=== PATIENT | female | born 1965 | race Caucasian/White ===

== ENCOUNTER 2021-07-21 11:31 | Outpatient (REF) | payer MEDICAID, SELFPAY ==
[2021-07-21 12:01] LABS: MANUAL DIFF FLAG NO
[2021-07-21 12:15] LABS: Basophils Percent Auto 0.4 % (0-2); Eosinophils Absolute Auto 0.1 X10*3/uL (0.0-0.4); Eosinophils Percent Auto 2.8 % (0-4); Hemoglobin 13.5 g/dl (12.0-16.0); Imm Gran Abs Auto 0.02 X10*3/uL (0.00-0.03); Imm Gran Pct Auto 0.4 % (0.0-0.4); Lymphocytes Absolute Auto 2.2 X10*3/uL (1.2-4.9); Lymphocytes Percent Auto 47.6 % (20-40); Mean Corpuscular HGB Conc 33.8 g/dl (31.0-35.0); Mean Corpuscular Hemoglobin 30.3 pg (27.0-33.0); Mean Corpuscular Volume 89.9 fL (80.0-98.0); Mean Platelet Volume 10.6 fL (9.4-12.3); Monocytes Absolute Auto 0.4 X10*3/uL (0.1-1.2); Monocytes Percent Auto 9.3 % (2-11); Neutrophils Absolute Auto 1.8 x10*3/uL (2.0-8.3); Neutrophils Percent Auto 39.5 % (45-73); Platelet Count 222 X10*3/uL (160-400); Red Blood Count 4.45 X10*6/uL (4.20-5.50); Red Cell Distribution Width 12.9 % (11.0-16.0); White Blood Count 4.6 X10*3/uL (4.8-10.8)
[2021-07-21 12:39] LABS: Alanine Aminotransferase 36 U/L (0-31); Albumin Level 4.4 g/dL (3.5-5.0); Alkaline Phosphatase 68 U/L (39-117); Aspartate Amino Transferase 28 U/L (5-31); Bilirubin Direct 0.2 mg/dL (0.0-0.5); Bilirubin Total 0.6 mg/dL (0.0-1.0); Total Protein 6.8 g/dL (6.5-8.0)
[2021-07-22 04:43] LABS: HBS Num1 0.41 mIU/mL (0-7.99); HBc Num1 0.23 S/CO (0.00-0.79); Hepatitis B Core Antibody Nonreactive (Nonreactive); Hepatitis B Surface Antigen Negative (Negative); ~Hepatitis B Surface Antibody NONREACTIVE (Nonreactive)
[2021-07-22 12:51] LABS: Anti Nuclear Antibody Screen NEGATIVE (NEGATIVE)
[2021-07-22 13:51] LABS: Immunoglobulin A 93 mg/dL (47-310)
[2021-07-22 16:16] LABS: Gliadin Deamidated IgG Ab <1.0 U/mL; Transglutaminase Ab IgG <1.0 U/mL; Transglutaminase IgA <1.0 U/mL
[2021-07-23 13:42] LABS: Mitochondrial Antibodies NEGATIVE (NEGATIVE)
== END 2021-07-21 11:32 | disposition home or self-care (01) ==
LOC: HO.LAB 11:31
PROVIDERS: PCP Nurse Practitioner Family; Visit Provider Internal Medicine Gastroenterology
DX: R79.89 Other specified abnormal findings of blood chemistry (principal)
CPT/HCPCS: 36415; 80076; 82784; 85025; 86015; 86038; 86039; 86231; 86255; 86256; 86258; 86364; 86704; 86706; 87340

== ENCOUNTER 2024-06-02 11:52 | Outpatient (REF) | payer MEDICAID, SELFPAY ==
[2024-06-02 13:06] LABS: MANUAL DIFF FLAG NO
[2024-06-02 13:13] LABS: Basophils Percent Auto 0.4 % (0-2); Eosinophils Absolute Auto 0.1 X10*3/uL (0.0-0.4); Eosinophils Percent Auto 1.6 % (0-4); Hematocrit 39.4 % (37.0-47.0); Hemoglobin 13.7 g/dl (12.0-16.0); Imm Gran Abs Auto 0.01 X10*3/uL (0.00-0.03); Imm Gran Pct Auto 0.2 % (0.0-0.4); Lymphocytes Absolute Auto 2.3 X10*3/uL (1.2-4.9); Lymphocytes Percent Auto 47.2 % (20-40); Mean Corpuscular HGB Conc 34.8 g/dl (31.0-35.0); Mean Corpuscular Hemoglobin 30.2 pg (27.0-33.0); Mean Corpuscular Volume 86.8 fL (80.0-98.0); Mean Platelet Volume 10.1 fL (9.4-12.3); Monocytes Absolute Auto 0.5 X10*3/uL (0.1-1.2); Monocytes Percent Auto 9.4 % (2-11); Neutrophils Percent Auto 41.2 % (45-73); Platelet Count 241 X10*3/uL (160-400); Red Blood Count 4.54 X10*6/uL (4.20-5.50); White Blood Count 4.9 X10*3/uL (4.8-10.8)
[2024-06-02 13:32] LABS: Alanine Aminotransferase 31 U/L (0-31); Albumin Level 4.5 g/dL (3.5-5.0); Alkaline Phosphatase 71 U/L (39-117); Aspartate Amino Transferase 32 U/L (5-31); Bilirubin Direct 0.3 mg/dL (0.0-0.5); Bilirubin Total 0.7 mg/dL (0.0-1.0); Blood Urea Nitrogen 6 mg/dL (9-16); Estimated Glomerular Filt Rate > 60; Lipase 30 U/L (8-78); Total Protein 6.9 g/dL (6.5-8.0)
[2024-06-05 08:04] LABS: Immunoglobulin A 95 mg/dL (47-310)
[2024-06-05 20:18] LABS: Gliadin Deamidated IgA Ab 4.9 U/mL; Gliadin Deamidated IgG Ab <1.0 U/mL; Transglutaminase Ab IgG <1.0 U/mL; Transglutaminase IgA <1.0 U/mL
[2024-06-09 23:53] LABS: Endomysial IgA Antibody Negative (Negative)
== END 2024-06-02 11:53 | disposition home or self-care (01) ==
LOC: HO.10HDL 11:52
PROVIDERS: Visit Provider Internal Medicine Gastroenterology
DX: R10.13 Epigastric pain (principal); R19.5 Other fecal abnormalities
CPT/HCPCS: 36415; 80076; 82565; 82784; 83690; 84520; 85025; 86231; 86258; 86364

== ENCOUNTER 2024-06-09 11:42 | Day surgery (SDC) | payer OTHER, SELFPAY ==
[2024-06-09 11:45] VITALS: BMI 22.2
[2024-06-09 11:59] VITALS: BP 131/75; PULSE 70; RESP 20; TEMP 36.9; O2SAT 98; BMI 22.0
--- NOTE | 2024-06-09 12:09 | MHC.SHP ---
Pre-Procedural Eval Section A - 24 Hr Update-Section A only Date of Service: 06/09/24 The patient is an INPATIENT: No Changes since office visit: No Cold of Flu in the past 2 weeks, No New Medical Problems, No Changes in Medication and No Patient answered all questions The patient has been examined within 24 hours of the surgical procedure. The History & Physical has been completed within 30 days and I have reviewed it.: Yes Section B - Complete if H&P > 30 days Chief Complaint: Epigastric pain,Other fecal abnormalities Allergies: Allergies Allergy/AdvReac Type Severity Reaction Status Date / Time aspirin Allergy Severe Gastrointestinal Unverified 06/09/24 12:07 Hemorrhage fentanyl Allergy Severe Hives Verified 06/09/24 12:07 gluten Allergy Severe Gastrointestinal Unverified 06/09/24 12:07 Upset Latex, Natural Rubber Allergy Severe Hives Verified 06/09/24 12:07 NSAIDS (Non-Steroidal Allergy Severe Gastrointestinal Unverified 06/09/24 12:07 Anti-Inflamma Hemorrhage Penicillins Allergy Severe Hives Unverified 06/09/24 12:07 wheat Allergy Severe Gastrointestinal Unverified 06/09/24 12:07 Upset Plan I have reviewed the history and physical and performed a pertinent physical examination on my patient. No changes have occurred unless specified. Time Spent With Patient Time: Total time managing care of this patient today ____ minutes.
--- NOTE | 2024-06-09 12:10 | HO.ANESPROP2 ---
HPI - Anesthesia Eval Consult details Narrative: 59 yo female patient for EGD, Colonoscopy PMFSH Past Medical History Medical History History of benign breast biopsy Injury of cervical spine Back pain Migraine Iron deficiency anemia Celiac disease Elevated liver function tests Family History Family History Father Heart disease Father Mother Family history of problems with anesthesia: No Surgical History Surgical History (Updated 06/09/24 @ 12:24 by Marta Restrepo MD) H/O left breast biopsy History of hysterectomy for benign disease History of knee surgery History of section History of Problems with Anesthesia: Yes (Hives. Happened twice even with benadryl necessitating hospitalization ) Social History Social History Patient Tobacco Use Status: Never used Tobacco Have you been hit, kicked, punched, or otherwise hurt by someone within the past year? 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 Meds Allergies Allergy/AdvReac Type Severity Reaction Status Date / Time aspirin Allergy Severe Gastrointestinal Verified 06/09/24 12:14 Hemorrhage fentanyl Allergy Severe Hives Verified 06/09/24 12:14 gluten Allergy Severe Gastrointestinal Verified 06/09/24 12:14 Upset Latex, Natural Rubber Allergy Severe Hives Verified 06/09/24 12:14 NSAIDS (Non-Steroidal Allergy Severe Gastrointestinal Verified 06/09/24 12:14 Anti-Inflamma Hemorrhage Penicillins Allergy Severe Hives Verified 06/09/24 12:14 wheat Allergy Severe Gastrointestinal Verified 06/09/24 12:14 Upset Home Medications ?Medication ?Instructions ?Recorded ?Confirmed ?Last Taken ?Type No Known Home Meds 06/09/24 06/09/24 Unknown History Exam Height,Weight and Vital Signs: Height 5 ft Weight 51.029 kg Last Vital Signs Temp 98.5 F 06/09/24 11:59 Pulse 70 06/09/24 11:59 Resp 20 06/09/24 11:59 BP 131/75 06/09/24 11:59 Pulse Ox 98 06/09/24 11:59 O2 Del Method Room Air 06/09/24 11:59 Airway Mallampati Class: II TM Dist: >3cm Neck ROM: Full Denture: Upper Loose/Missing/Broken Teeth: Yes (Top full denture. Missing some teeth bottom. Denies broken or loose teeth) Heart: RRR Lungs: CTAB Assessment and Plan Assessment Anesthesia Assessment: Anesthesia Plan Discussed and Chart Reviewed Final Anesthetic Review Family History of Problems with Anesthesia: No History of Problems with Anesthesia: Yes (Hives. Happened twice even with benadryl necessitating hospitalization ) NPO: Yes ASA Class: II Final Preanesthetic Review: No Changes in Pt Med Stat, Meds/Allgs Chart Reviewed, Consent Obtained/Reviewed and Anes Risks/Benef Reviewed Patient Risk: Low Procedure Risk: Low Assessment/Block/Sedation in SS: Assess/Block/Sedation-SS Anesthetic Plan Anesthetic Plan: TIVA Disposition: Standard PACU
[2024-06-09 13:12] VITALS: BP 109/78; PULSE 69; RESP 16; TEMP 36.3; O2SAT 98
[2024-06-09 13:27] VITALS: BP 110/71; PULSE 65; RESP 16; O2SAT 98
[2024-06-09 13:40] VITALS: BP 110/75; PULSE 65; RESP 14; TEMP 36.3; O2SAT 98
--- NOTE | 2024-06-09 23:06 | OP_ITS ---
DATE OF SERVICE: 06/09/2024 SURGEON: Ari Germain MD INDICATIONS: 1. Epigastric pain. 2. Abnormal findings in stool. PREOPERATIVE DIAGNOSIS: POSTOPERATIVE DIAGNOSIS: PROCEDURE PERFORMED: Upper endoscopy with biopsy, colonoscopy to the terminal ileum with biopsy and snare polypectomy. ESTIMATED BLOOD LOSS: COMPLICATIONS: ANESTHESIA: Monitored anesthesia care. ASSISTANTS: SPECIMENS: DESCRIPTION OF PROCEDURE: A history and physical performed. The risks and benefits of the procedure were explained to the patient. Informed consent was obtained. The patient was placed in the left lateral decubitus position. The Olympus video gastroscope was introduced into the esophagus, stomach, and duodenum. Examination was performed. The scope was removed. She was repositioned for colonoscopy. A digital rectal exam was performed and was found to be normal. The Olympus pediatric video colonoscope was introduced into the rectum and advanced to the cecum. The cecum was identified by transillumination, palpation, and identification of ileocecal valve. Examination was performed. The scope was removed. She tolerated both procedures well and was returned to recovery in stable condition. FINDINGS: Upper endoscopy, esophagus: The esophagus was normal. The EG junction was slightly irregular. There was no esophagitis. Biopsies were obtained from the EG junction. Stomach: The stomach was normal. Antral biopsies were obtained. Duodenum: The bulb and second portion appeared relatively normal. Biopsies were obtained from the duodenum, because of the patient's history of celiac disease. Colonoscopy: The terminal ileum was normal, visualized colonic mucosa was normal. The quality of the prep was good. Abdominal wall pressure was used to assist in advancement of the scope due to looping in the sigmoid. In the rectum, were 2 polyps; 1 measuring 8 mm, which were removed with a hot snare and recovered via suction; the second measured approximately 4 mm and was removed with biopsy forceps. Retroflexed examination showed moderate-sized internal hemorrhoids. IMPRESSION: 1. Normal upper endoscopy. 2. Colon polyps. RECOMMENDATION: Follow up the biopsy results. MD AURY Beach/MARIA EUGENIAL / [phone]
== END 2024-06-09 14:11 | disposition home or self-care (01) ==
PROVIDERS: PCP Nurse Practitioner Family; Visit Provider Internal Medicine Gastroenterology
PROC: (CPT 43239; principal; 2024-06-09 12:50)
DX: R10.13 Epigastric pain (principal); D12.8 Benign neoplasm of rectum; K56.2 Volvulus; R19.5 Other fecal abnormalities; K90.0 Celiac disease
CPT/HCPCS: 43239; 45385; 45380; 88305; 88313; 88342; J2003; J2704

== ENCOUNTER 2025-07-06 09:30 | Outpatient (REF) | payer OTHER, SELFPAY ==
--- OUTSIDE RECORDS SUMMARY | 2024-06-09 08:00 | XMS_ITS ---
Author Organization [facility] Address [address] [place] [phone] Care Team Providers Care Desktop Administrator Name Role Phone DAGOBERTO CHERY CNP Primary Care Provider U Ari Thomas Jr REASON FOR VISIT abnormal findings in stool,epigastric pain Encounters Encounter Location Date Provider Diagnosis [facility] [address] [place] [phone] 06/09/2024 Ari Germain Jr Rectal polyp K62.1 ; Heme + stool R19.5 ; Other hemorrhoids K64.8 ; Other specified disease of esophagus K22.89 and Abdominal pain, epigastric R10.13 Assessments Encounter Date Diagnosis (ICD Code) Assessment Notes Treatment Notes Treatment Clinical Notes Section Notes 06/09/2024 Rectal polyp (ICD-10 - K62.1) 06/09/2024 Heme + stool (ICD-10 - R19.5) 06/09/2024 Other hemorrhoids (ICD-10 - K64.8) 06/09/2024 Other specified disease of esophagus (ICD-10 - K22.89) 06/09/2024 Abdominal pain, epigastric (ICD-10 - R10.13) Plan Of Treatment No Information Progress Notes * BELLE SARAHDOB:1964 (60 yo F)Acc No.[id number]:06/09/2024 EGD and COL/MAC Patient: Gregor BELLE WHITMAN Provider: Sergio Germain MD :1965 A ge:59 Y S ex:Female Date:06/09/2024 Address:[address] [place] [address] [place], [id number] Pcp:DAGOBERTO CHERY, MAINTENANCE SHOP MANAGER Subjective: * Chief Complaints: * A bnormal findings in stool,epigastric pain Assessment: * Assessment: 1. R ectal polyp - K62.1 (Primary) 2 . H jerzy + stool - R19.5 ?3. O ther hemorrhoids - K64.8 4 . O ther specified disease of esophagus - K22.89 5 . A bdominal pain, epigastric - R10.13 Plan: * Procedure Codes: 4 5385 LESION REMOVAL COLONOSCOPY, Modifiers: 33 71835 COLONOSCOPY AND BIOPSY, Modifiers: 59 , [id number] UPPER GI ENDOSCOPY, BIOPSY Billing Information: * Procedure Codes: 74412 LESION REMOVAL COLONOSCOPY. Modifiers: 33 12845 COLONOSCOPY AND BIOPSY. Modifiers: 59, 03 52139 UPPER GI ENDOSCOPY, BIOPSY. * The named appointment provid er may or may not be the originator of this progress note, and it is not deemed complete until electronically signed by the appointment provider. Sign off status: Pending * Provider: Sergio Germain MD Date: 08/09/2023 Generated for Maggy naranjo/Shayla/Nancyransmitting on: 09/06/2024 10:15 AM EST
--- NOTE | ~2025-07-06 | US_ITS ---
CLINICAL HISTORY: abd pain. elevated LFTs US abdomen complete with color Doppler Comparison: None Findings: The visualized pancreas, aorta, and inferior vena cava are unremarkable. Liver normal size and echotexture. Right lobe 11.1 cm length. No focal hepatic masses. Common duct 5.5 mm diameter. Physiologic distention of the gallbladder. No gallstones or sludge. No gallbladder wall thickening. No pericholecystic fluid. No sonographic Perry sign. Main portal vein antegrade. Right kidney normal size, 10.1 cm in length. Normal cortical width and echotexture. No solid or cystic renal masses. No nephrolithiasis. No hydronephrosis. Left kidney normal, 10.1 cm in length. Normal cortical width and echotexture. No solid or cystic renal masses. No nephrolithiasis. No hydronephrosis. Spleen measures 8.1 cm. No splenic masses. No ascites. No lymphadenopathy. Impression: 1. Normal abdominal ultrasound. This document has been electronically signed by: Ran Bernal MD on 07/06/2025 11:25:03
--- OUTSIDE RECORDS SUMMARY | 2025-07-06 10:15 | XMS_ITS | Encounter Summary ---
Author Organization [facility] Address [address] [place] [address] Care Team Providers Care National Park Ranger Name Role Phone Luciana Lombardo MD Primary Care Provider [phone]- [phone] Encounter Details Date Type Department Care Team (Late Contact Info) Description 05/27/2025 Results Follow-Up Gastroenterology - [address] [phone] Saima Bates PA [address] [place] [address] [address] Social History Tobacco Use Types Packs/Day Years Used Date Smoking Tobacco: Never Assessed Comments Unknown Sex and Gender Information Value Date Recorded Sex Assigned at Not on file Legal Sex Female 11:42 AM EDT Gender Identity Not on file Sexual Orientation Not on file documented as of this encounter Progress Notes * LUZ Stearns - 05/27/2025 4:58 PM EST I will send msg. documented in this encounter Plan of Treatment Upcoming Encounters Date Type Department Care Team (Late Contact Info) Description 07/23/2025 9:10 AM EST Office Visit Gastroenterology - [address] [facility] [address] [place] [phone] Saima Bates PA [address] [place] [address] [address] documented as of this encounter Visit Diagnoses Not on filedocumented in this encounter Care Teams National Park Ranger Relationship Specialty Start Date End Date Luciana Lombardo MD [address] [place] [phone] PCP - General Internal Medicine 03/09/25 documented as of this encounter
--- OUTSIDE RECORDS SUMMARY | 2025-07-06 10:15 | XMS_ITS | Clinical Summary ---
Author Organization [facility] Address [address] [place] [address] Phone Care Team Providers Care Scutcher Tender Name Role Phone Luciana Lombardo MD Primary Care Provider [phone]- [phone] Allergies Active Allergy Reactions Criticality Noted Date Comments Fentanyl Hives 03/14/2025 Gluten 03/14/2025 Ibuprofen GI bleeding,Unknown High 03/14/2025 Latex High 03/14/2025 Milk Containing Products (Dairy) Nsaids (Non-Steroidal Anti-Inflammatory Drug) GI bleeding,Unknown 03/14/2025 Peanut 03/14/2025 Penicillins Unknown 03/14/2025 Soy Unknown 03/14/2025 Medications magnesium carb,citrate,oxi de (MAGNESIUM COMPLEX ORAL) Take 500 mg by mouth 1 (one) time each day. Active CREATINE MONOHYDRATE ORAL Take 10 g by mouth 1 (one) time each day. Active cyanocobalamin (VITAMIN B-12) 1,000 mcg tablet Take 0.5 tablets (500 mcg total) by mouth 1 (one) time each day. Active cholecalciferol (Vitamin D3) 5,000 Units tablet Take 1 tablet (5,000 Units total) by mouth 1 (one) time each day. Active activated charcoal powder Acti ve lactobacillus acidoph-l.bulgar 100 million cell granules in packet Take 1 packet by mouth 1 (one) time each day. Active Lactobacillus reuteri 100 million cell powder in packet Take 1 Package by mouth 2 (two) times a day. 60 packet 3 03/14/2025 Active Encounters Date Type Department Care Team Description 05/27/2025 Results Follow-Up Gastroenterology - [address] [phone] Saima Bates PA 05/16/2025 8:04 AM EDT - 05/16/2025 11:59 PM EDT Hospital Encounter [facility] Nuclear Medicine [address] [place] [phone] Celiac disease; Rectal discharge; Constipation, unspecified constipation type Discharge Disposition: Home or Self Care from Last 3 Months Social History Tobacco Use Types Packs/Day Years Used Date Smoking Tobacco: Never Assessed Comments Unknown Sex and Gender Information Value Date Recorded Sex Assigned at Not on file Legal Sex Female 11:42 AM EDT Gender Identity Not on file Sexual Orientation Not on file Last Filed Vital Signs Vital Sign Reading Time Taken Comments Blood Pressure 96/60 03/14/2025 2:00 PM EDT Pulse - - Temperature - - Respiratory Rate - - Oxygen Saturation - - Inhaled Oxygen Concentration - - Weight 50.8 kg (112 lb) 03/14/2025 2:00 PM EDT Height 152.4 cm (5') 03/14/2025 2:00 PM EDT Body Mass Index 21.87 03/14/2025 2:00 PM EDT Plan of Treatment Upcoming Encounters Date Type Department Care Team ([facility] st Contact Info) Description 07/23/2025 9:10 AM EST Office Visit Gastroenterology - [address] [phone] Saima Bates PA [address] [address] Health Maintenance Due Date Last Done Comments Breast Cancer Screening 1965 DTaP,Tdap,and Td Vaccines (1 - Tdap) 02/12/1984 Cervical Cancer Screening: P ap Smear 1986 Pneumococcal Vaccine: 50+ Years (1 of 1 - PCV) 2015 Zoster Vaccines (1 of 2) 2015 Depression Screening 07/19/2024 HIV Screening 12/22/2024 Hepatitis C Screening 12/22/2024 Social Influencers of Health Screening 12/22/2024 COVID-19 Vaccine (1 - 2024-2 6 season) 2025 Influenza Vaccine (#1) 2025 Colorectal Cancer Screening: FIT-DNA (Cologuard) 05/02/2027 05/02/2024, 05/02/2024 RSV Immunization Adult Patients (1 - 1-dose 75+ series) 02/12/2040 HIB Vaccines Aged Out No longer eligi ble based on patient's age to complete this topic HPV Vaccines Aged Out No longer eligi ble based on patient's age to complete this topic Hepatitis A Vaccines Aged Out No long er eligible based on patient's age to complete this topic Hepatitis B Vaccines Aged Out No long er eligible based on patient's age to complete this topic IPV Vaccines Aged Out No longer eligi ble based on patient's age to complete this topic MMR Vaccines Aged Out No longer eligi ble based on patient's age to complete this topic Meningococcal ACWY Vaccine Aged Out N o longer eligible based on patient's age to complete this topic Meningococcal B Vaccine Aged Out No l onger eligible based on patient's age to complete this topic RSV Immunization Patients Under 20 months Aged Out No longer eligible b ased on patient's age to complete this topic Varicella Vaccines Aged Out No longer eligible based on patient's age to complete this topic Procedures Procedure Name Priority Date/Time Associated Diagnosis Comments NM GASTRIC EMPTYING STUDY Routine 05/16/2025 11:23 AM EDT Celiac disease Rectal discharge Constipation, unspecified constipation type from Last 3 Months Results * NM Gastric Emptying Study (05/16/2025 11:23 AM EDT) Anatomical Region Laterality Modality Body Nuclear Medicine 05/16/2025 3:35 PM EDT Impressions 05/16/2025 3:37 PM EDT Normal solid material gastric emptying. Telerad LUZ ([id number]) -------- FINAL REPORT -------- Dictated By: Dia Nina Dictated Date: 05/16/2025 15:35 ET Assigned Physician: Dia Nina Reviewed and Electronically Signed By: Dia Nina Signed Date: 05/16/2025 15:37 ET Workstation ID: [id number] Transcribed By: Self Edit Transcribed Date: 05/16/2025 15:35 ET Narrative 05/16/2025 3:37 PM EDT HISTORY: Abdominal pain and bloating. Question disordered gastric emptying. FINDINGS: Radionucleotide gastric emptying study performed following ingestion of 1.0 mCi of Tc99m sulfur colloid mixed with eggs for solid food evaluation. Solid food evaluation time to half peak clearance is 68 minutes with normal being less than 90 minutes. Patients 2 hour retention amount was calculated at 10%. Reference normal solid residual activity: less than 90% at 1 hour less than 60% at 2 hours less than 30% at 3 hours less than 10% at 4 hours Procedure Note Dia Nina MD - 05/16/2025 HISTORY: Abdominal pain and bloating. Question disordered gastricemptying. FINDINGS: Radionucleotide gastric emptying study performed followingingestion of 1.0 mCi of Tc99m sulfur colloid mixed with eggs for solidfood evaluation. Solid food evaluation time to half peak clearance is 68 minutes withnormal being less than 90 minutes. Patients 2 hour retention amount was calculated at 10%. Reference normal solid residual activity: less than 90% at 1 hour less than 60% at 2 hours less than 30% at 3 hours less than 10% at 4 hours IMPRESSION: Normal solid material gastric emptying. Mitul ESCOBAR ([id number]) -------- FINAL REPORT -------- Dictated By: Dia Nina Dictated Date: 05/16/2025 15:35 ET Assigned Physician: Dia Nina Reviewed and Electronically Signed By: Dia Nina Signed Date: 05/16/2025 15:37 ET Workstation ID: [id number] Transcribed By: Self Edit Transcribed Date: 05/16/2025 15:35 ET Saima ESCOBAR IMG NM PROCEDURES Final Resul t from Last 3 Months Insurance MEDICAID - [place] [facility] [place] MEDICAID ADVANTAGE Care Teams Scutcher Tender Relationship Specialty Start Date End Date Luciana Lombardo MD [address] [place] [phone] PCP - General Internal Medicine 03/09/25
--- OUTSIDE RECORDS SUMMARY | 2025-07-06 10:15 | XMS_ITS | Patient Health Record ---
Author Organization [facility] Address [address] [place] [address] Care Team Providers Care Fabrication Inspector Name Role Phone DAGOBERTO CHERY CNP Primary Care Provider U Ari Thomas Jr Unavailable Allergies Allergen (clinical drug ingredient) Drug/Non Drug Allergy documented on EMR Reaction Allergy Type Onset Date Status celiac wheat, gluten , grains (uncoded) Unknown Allergy Active aspirin Aspirin Unknown Drug Allergy Active Latex Latex Unknown Allergy Active Non-steroidal anti-inflammatory agent (FN) NSAIDs Unknown Drug Allergy Active Penicillin Unknown Drug Allergy Active Reason For Referral No Information Immunizations Vaccine Route Administration Date Status Comme nts Influenza Unknown 07/21/2021 Refused Influenza Unknown 05/04/2025 Refused Social History Tobacco Use: Social History Observation Description Date Details (start date - stop date) Never Smoker NA - NA Social History Drugs/Alcohol: Social Info Question Answer Notes Alcohol Screen Did you have a drink containing alcohol in the past year? No Points 0 Interpretation Negative Tobacco Use: Social Info Question Answer Notes Tobacco Use/Smoking Patient is a nonsmoker Additional Details Category Social Info Options Details Miscellaneous: Marital status: Occupation: works full-time Problems Problem Type SNOMED Code ICD Code Onset Dates Problem Status W/U Status Risk Notes Problem Epigastric pain (27941533) Epigastric pain (R10.13) Active confirmed Problem Abdominal pain (74322578) Abdominal pain (R10.9) Active confirmed Problem Celiac disease (706463755) Celiac disease (K90.0) Active confirmed Problem Elevated liver enzymes level (820149471) Elevated LFTs (R79.89) Active confirmed Problem Abnormal feces (391603257) Abnormal findings in stool (R19.5) Active confirmed Vital Signs Temperature 97.8 degrees Fahrenheit 05/04/2025 Blood pressure diastolic 01 mm Hg 05/04/2025 Height 60 in 05/04/2025 Blood pressure systolic 001 mm Hg 05/04/2025 Weight 114 lbs 05/04/2025 BMI 22.26 kg/m2 05/04/2025 Encounters Encounter Location Date Provider Diagnosis [facility] [address] [place] [address] 05/04/2025 Ari Marcellus Randolph Abdominal pain R10.9 ; Elevated LFTs R79.89 and Celiac disease K90.0 Assessments Encounter Date Diagnosis (ICD Code) Assessment Notes Treatment Notes Treatment Clinical Notes Section Notes 05/04/2025 Abdominal pain (ICD-10 - R10.9) We discussed her symptoms today. We discussed celiac disease. We discussed the causes of elevated liver function tests. We will schedule an ultrasound here since she has not been contacted by the radiology department at [place]. For her abdominal pain she will have an upper GI and small bowel follow-through to rule out small bowel disease. We offered a trial of Bentyl for her abdominal symptoms but she does not want to do this. We will await the results of imaging and she will have follow-up liver function tests later in the fall. Today's visit was 30 minutes. 05/04/2025 Elevated LFTs (ICD-10 - R79.89) We discussed her symptoms today. We discussed celiac disease. We discussed the causes of elevated liver function tests. We will schedule an ultrasound here since she has not been contacted by the radiology department at [place]. For her abdominal pain she will have an upper GI and small bowel follow-through to rule out small bowel disease. We offered a trial of Bentyl for her abdominal symptoms but she does not want to do this. We will await the results of imaging and she will have follow-up liver function tests later in the fall. Today's visit was 30 minutes. 05/04/2025 Celiac disease (ICD-10 - K90.0) We discussed her symptoms today. We discussed celiac disease. We discussed the causes of elevated liver function tests. We will schedule an ultrasound here since she has not been contacted by the radiology department at [place]. For her abdominal pain she will have an upper GI and small bowel follow-through to rule out small bowel disease. We offered a trial of Bentyl for her abdominal symptoms but she does not want to do this. We will await the results of imaging and she will have follow-up liver function tests later in the fall. Today's visit was 30 minutes. Plan Of Treatment Pending Test Test Name Order Date LIVER PROFILE 06/02/2024 LIVER PROFILE 07/28/2021 LIPASE 06/02/2024 CBC w/o DIFF 06/02/2024 CBC w/o DIFF 07/28/2021 CELIAC DISEASE ANTIBODY PANEL 06/02/2024 CT ABD & PELVIS WITH CONTRAST 06/02/2024 XR GI HIGH DENSITY SMALL BOWEL US ABD 05/04/2025 Future Test Test Name Order Date UPPER GI ENDOSCOPY 06/02/2024 COLONOSCOPY 06/02/2024 Insurance Providers Payer Name Payer Address Payer Phone Subscriber Number Group Number Insured Name Patient Relationship to Insured Coverage Start Date Coverage End Date [facility] [address] [place] [address] [id number] BELLE SARAH Self - patient is the insured MEDICAID OF [facility] [address] [place] [address] [id number] BELLE SARAH Self - patient is the insured Medical (General) History Medical History History ICD Code Elevated liver function tests Celiac disease Iron deficiency anemia, resolved Migraines Back pain 11/2023 fall broke arm /cervical spine in jury osteoporosis EGD 06/11 mildly increased i ntraepithelial lymphocytes in the duodenum, no H. pylori Colonoscopy 06/11, tubular adenomas x 2, 5 to 7-year follow-up Surgical History Surgery Date(Month/Year) section 2 knee surgeries Benign breast lump Hysterectomy for benign disease carpal tunnel release
--- OUTSIDE RECORDS SUMMARY | 2025-07-06 10:15 | XMS_ITS | Data Portability ---
Author Organization [facility]ON[facility] - [facility], [facility] Address [address] [place] [address] Care Team Providers Care Training Engineer Name Role Phone DAGOBERTO CHERY Primary Care Provider Assessment Encounter Date Assessment Date Assessment LastModified by Organization Details LastModified Time 10/31/2024 10/31/2024 A ssessment: 1. Cervical stenosis with myeloradiculopathy 2. Severe bilateral carpal tunnel syndrome 3. Osteoporosis Plan: 1. Cervical Spine: - Recommend C5-6 and C6-7 anterior cervical discectomy and fusion vs disc replacement - Will defer cervical surgery until after carpal tunnel treatment - CT scan to be ordered for surgical planning 2. Carpal Tunnel Syndrome: - Order bilateral wrist braces for night use - Referral to hand surgery for bilateral carpal tunnel release evaluation - Recommend addressing more symptomatic left side first - I believe there is a degree of double crush however cervical pathology is more significant on the right and her hand symptoms are more significant on the left. 3. Osteoporosis: - Order Vitamin D level - Will review DEXA scan results - Recommend initiating alendronate therapy After reviewing the patient's history, physical exam and studies I have decided the patients chronic illness with progression warrants elective major surgery. The patient has completed greater than 6 weeks of physician directed nonoperative management of this condition to include medications and physical therapy without improvement. I have further discussed the natural progression of this disease as well as the operative and non-operative modalities that are appropriate for treating this disease. The known risks of surgery include infection, bleeding, damage to nerves and/or arteries, continued pain, loss of motion, spinal fluid leak, and the possible need for further surgeries. Risks of anesthesia such as nausea, vomiting, pneumonia, stroke, heart attack and . ICD-10: M47.12 - Cervical spondylosis with myelopathy ICD-10: G56.02 - Carpal tunnel syndrome, bilateral ICD-10: M81.0 - Age-related osteoporosis without current pathological fracture [email or web address] Not available 10/31/2024 12:41:10 Plan of Treatment Reminders Order Date Submit Date Provider Last Modified By Organization Details Last Modified Time Details Appointments None recorded. 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 Surgeries carpal tunnel release (SURG) 2024 025 [email or web address] 5 [facility], [address], [place], [address], 5 10:29:16 Imaging XR, cervical spine, 4 or 5 view - 325 4v cspine 2024 025 [email or web address] 8 [facility], [address], [address], [place], [address], 5 10:54:11 Medication Orders None recorded. Patient TargetsNo targets recorded. Patient InstructionsNo instructions recorded. Reason for Referral left hand and wrist s/p dist al radius fx Referring Physician: Lencho Wells, Orthopedic Surgery, Encounter Date: 08/08/2024 Results Created Date Observation Date Name Description Value Unit Range Abnormal Flag Note LastModifiedBy Organization Detail LastModifiedTime 04/19/20 24 04/10/2024 MRI, cervi tenzin spine , w/o contr ast [facility] Access ion Number : [id number] Patien t Name: Ethan Tai Record Number : [id number] Date of : 1964 Date of Exam: 2023 Referr ing Physic berna: [facility] ([facility]) [address] [facility] , [address] [place] [address] Exam: MR Cervic al Spine (C-) CPT 55091 Room Descri ption: [facility] Pion 3T HISTOR Y: Cervic algia. Bilate ral arm pain and parest hesias . TECHNI QUE: Multip lanar multis equenc e MRI of the cervic al spine withou t contra st. COMPAR KAYLA: No prior studie s are availa ble for compar kayla at [facility] . FINDIN GS: There is a slight rightw keagan curvat ure of the cervic al spine on the lockhart l locali zer images . Subtle revers al of the cervic al lordos is is also noted. No sublux ation. The cervic al verteb ral bodies are normal in height . Modera te loss of height of C5-C6 and C6-C7. Margin al osteop hytes are noted at C5-C6. The visual ized decorating inspector ior crania l fossa struct ures and cervic omedul ja juncti on are unrema rkable . The cervic al cord is normal in signal . The parasp inal soft tissue s and visual ized verteb ral artery flow voids are unrema rkable . C2-C3: Small centra l disc protru rosi. No signif icant centra l canal or forami nal narrow ing. C3-C4: No centra l canal or forami nal stenos is. C4-C5: No centra l canal or forami nal stenos is. C5-C6: Concen tric disc-o steoph yte comple x. Mild centra l canal narrow ing. Severe right and mild left forami nal narrow ing. C6-C7: Broad- based decorating inspector ior disc bulge asymme tric to the right. Modera te right centra l canal narrow ing withou t cord imping ement. Subtle deform ity of the cord is noted. Mild right and no left forami nal narrow ing. C7-T1: No centra l canal or forami nal stenos is. IMPRES ROSI: Degene rative change s of the cervic al spine with disc hernia tions as descri bed above. No defini te cord compre ssion is noted, but deform ity of the right ventra l margin of the cord is noted at C6-C7. Forami nal stenos is is most pronou nced on the right at C5-C6. Electr onical ly Signed By: Nic Dia MD [facility] [address], [place], [address], 05/08/2024 08:48:35 05/05/2005/05/2024 XR, wrist , 3 or more view [email or web address] ?Encry pted=s hAaTro YD8dLq bEUv6g %2BXZw aYqtaq 0bqfl% 2Fg9IQ a4ajBk vP9nXo QUaueC m3YtLR FvZl JJ8mAn HZtai3 3h2570 AC0Kqa 3WHVaC mKiQtr MwF INTERFACE [facility] [address], [place], [address], 05/05/2024 10:18:43 05/05/20 24 05/05/2024 XR, wrist , 3 or more view [email or web address] ?Encry pted=s hAaTro YD8dLq bEUv6g %2BXZw aYqtaq 0bqfl% 2Fg9IQ a4ajBk vP9nXo QUaueC m3YtLR FvZlg JJ8mAn HZtai3 6z7138 AC0Kqa 3WHVaC mKiQtr MwF INTERFACE [facility] [address], [place], [address], 05/05/2024 10:18:45 08/08/19 25 08/08/2024 XR, cervi tenzin spine , 4 or 5 view http:/ [email or web address] ?Encry pted=s hAaTro YD8dLq bEUv6g %2BXZw aYqtaq 0bqfl% 2Fg9IQ a4ajBk vP9nXo QUaueC m3YtLR FvZlgJ JJ8mAn HZtai3 7y2544 AC0Kqb 3uMU6S nKiQtr MwF INTERFACE [facility] [address], [place], [address], 08/08/2024 09:16:28 08/08/19 25 08/08/2024 XR, cervi tenzin spine , 4 or 5 view http:/ [email or web address] ?Encry pted=s hAaTro YD8dLq bEUv6g %2BXZw aYqtaq 0bqfl% 2Fg9IQ a4ajBk vP9nXo QUaueC m3YtLR FvZlgJ JJ8mAn HZtai3 6l7718 AC0Kqb 3uMU6S nKiQtr MwF INTERFACE [facility] [address] [facility] [address] [facility] [address], [place], [address], 08/08/2024 09:16:30 09/12/19 25 08/15/2024 nerve condu ction study /EMG, upper extre mity (PROC ) No observ ation record ed. [facility] [address] [place] [address], [address], 10/02/2024 14:32:49 Result Notes Documentation Provider Name and Address Organization Details Recorded Time Xr, Cervical Spine, 4 Or 5 View : [email or web address] Encrypted=lvJcLifUA9tGjzC Uv6g%2DVWjnJutio1zsrw%2Fg 1ENx7auNkuD0fZxDKgelEk9Or PLEkRltVVV3aDlAXiwi29s996 4IJ4Fia6fTT9UfKpRktZmX Not Available Critical access hospital 08/08/2024 09:16: 29 Xr, Cervical Spine, 4 Or 5 View : [email or web address] Encrypted=dtLnAofTM1eHrkW Uv6g%6NDKjqIbpfo4aiqr%2Fg 1MEp6eaYtvP0rSzTMdzvEc6Ji YVFrExoAOS0kGyHJgyk72h630 3VK0Lha6aFT4NcNrXdqFiW Not Available Critical access hospital 08/08/2024 09:16: 31 Problems Name Problem SNOMED Code Status Onset Date Resolution Date Notes Provider Name and Address Organization Details Recorded Time Closed fracture of left wrist 7616415811923 9101 Active 2023 Mellissa Garcia CNP [address], [place], [address], [facility] 4 13:16:30 Closed fracture of distal end of left radius 0063156268299 9107 Active 2023 Mellissa Garcia CNP [address], [place], [address], [facility] 4 11:43:38 Pain of left wrist 7099182531433 02 Active 2023 Mellissa Garcia CNP [address], [place], [address], [facility] 4 12:18:40 Cervical radiculopat hy 13619982 Active 2023 JOHNSON zavaleta [facility] 4 08:05:52 Stiffness of joint of left hand 1865665552319 07 Active 2024 Lencho Wells MD [address], [place], [address], [facility] 5 11:13:56 Closed Colles' fracture 560232347 Active 2024 Lencho Wells MD [address], [place], [address], [facility] 5 11:13:58 Spinal stenosis in cervical region 77341673 Active 2024 Lencho Wells MD [address], [facility] [place], [address], [facility] 5 11:14:01 Problem Notes None recorded. Medical Equipment None Reported. Allergies Allergen ID Allergen Name Allergen Category Reaction Reaction Severity Criticality Documentation Date Start Date Code Code System Note Provider Name and Address Organization Details Recorded Time 689264 Motrin medicatio n Not available Not available Not available 11/24/2023 08872 8 RxNorm KOLBY FUNEZ [facility] 4 09:39:40 092720 Non-stero idal anti-infl ammatory agent (substanc e) medicatio n Not available Not available Not available 11/24/2023 45257 5008 SNOMED KOLBY FUNEZ [facility] 4 09:39:50 847243 aspirin medicatio n Not available Not available Not available 11/24/2023 1191 RxNorm KOLBY FUNEZ [facility] 4 09:40:09 135381 fentanyl medicatio n Not available Not available Not available 11/24/2023 4337 RxNorm KOLBY FUNEZ [facility] 4 09:40:14 501215 soy environme nt,food,m edication Not available Not available Not available 11/24/2023 KOLBY FUNEZ [facility] 4 09:40:23 886556 peanut allergeni c extract food,medi cation Not available Not available Not available 11/24/2023 20320 8 RxNorm KOLBY FUNEZ [facility] 4 09:40:27 214855 Product containin g penicilli n (product) medicatio n Not available Not available Not available 11/24/2023 35619 8001 SNOMED KOLBY FUNEZ [facility] 4 09:40:41 Medications Name Sig Start Date Stop Date Status Note LastModified by Organization Details LastModified Time oxycodone 5 mg tablet TAKE 1 TABLET BY MOUTH EVERY 4 HOURS NEEDED FOR 1 DAY active Not Available Not Available No t Available Vitals Date Recorded Body height Provider Name an d Address Organization Details Last Updated DateTime 08/08/2024 152.4 cm Meliza lucia [facility] 08/08/2024 09:02:51 Date Recorded Body height Body mass index (BMI) Body weight Provider Name and Address Organization Details Last Updated DateTime 10/31/2024 152.4 cm 22.8 kg/m2 58183.31 g Meliza [facility] 10/31/2024 09:14:34 Date Recorded Body height Body mass index (BMI) Body weight Provider Name and Address Organization Details Last Updated DateTime 11/20/2024 152.4 cm 22.8 kg/m2 16716.31 g MARGE MEHTA [facility] 11/20/2024 09:16:08 Date Recorded Body height Body mass index (BMI) Body weight Provider Name and Address Organization Details Last Updated DateTime 05/11/2024 152.4 cm 22.8 kg/m2 79320.31 g JOHNSON SMITH [facility] 05/11/2024 10:58:15 Social History None recorded. Functional Status None recorded. Mental Status None recorded. Family History Nothing Reported. Medical History Condition Response Allergies/Hayfever N Coronary Artery Disease N Anxiety/Depression N Breathing or lung disorders N Emphysema N Nerve Disorders N Thyroid Problems N COPD N Pacemaker N Anemia Y Kidney/Bladder Problems N Vascular Disease N Heart Trouble N Heart Attack (MT) N Gastrointestinal Disease Y Cholesterol N Diabetes N Autoimmune disease N Bleeding Disorder N Orthotics N Arthritis N Seizures/Epilepsy N Blood Clot N AIDS/HIV N Congestive Heart Failure (CHF) Y Acid Reflux (GERD) N Cancer N Stroke N Asthma N Peripheral Vascular Disease N Sleep Apnea N Hepatitis N Heart Disease N Rheumatoid Arthritis N Arrhythmia N Pulmonary Embolism N Headaches N Fibromyalgia N Hypertension N Osteoporosis N Gynecological HistoryNo gynecological history recorded. Obstetrics History GPAL:G 0 P 0 0 0 0 Past Encounters Encounter ID Performer Location Encounter Start Date Encounter Closed Date Diagnosis/Indication Diagnosis SNOMED-CT Code Diagnosis ICD10 Code Diagnosis IMO Codes Diagnosis Note [id number] Mellissa Drenga, ROOFING MACHINE TENDER [facility] [address] [place] [address] 11/24/2023 09:04:35 12/07/2023 11:26:03 Closed fracture of left wrist 9401393323 8449493 S62.92XA [id number] Mellissa Garcia CNP [facility] [address] [place] [address] 12/03/2023 09:42:15 12/16/2023 14:08:43 Pain of left wrist 9592059842 02916 M25.532 Closed fra cture of distal end of left radius 2754643850 6414943 S52.502D [id number] Mellissa Garcia CNP [facility] [address] [place] [address] 12/17/2023 09:40:31 12/28/2023 08:27:42 Pain of left wrist 9267229722 23710 M25.223 [id number] Mellissa Garcia, ROOFING MACHINE TENDER [facility] [address] [place] [address] 01/06/2024 15:58:21 01/26/2024 13:20:04 Pain of left wrist 0304392639 89041 M25.532 Closed fra cture of distal end of left radius 7701005660 9356597 S52.502D [id number] Mellissa Garcia CNP [facility] [address] [place] [address] 02/03/2024 13:25:19 02/18/2024 09:52:26 Pain of left wrist 3562951061 55245 M25.532 Closed fra cture of distal end of left radius 8486677093 0053477 S52.502D [id number] Nina Wetzel PA-C [facility] [address] [place] [address] 04/03/2024 11:19:47 05/05/2024 16:45:27 Neck pain 39653386 M54.2 [id number] Mellissa Vossade, ROOFING MACHINE TENDER [facility] [address] [place] [address] 05/05/2024 09:37:36 05/24/2024 14:52:48 Pain of left wrist 2655745317 84988 M25.532 462212 [id number] Nina Wetzel PA-C [facility] [address] [place] [address] 05/11/2024 10:55:24 05/30/2024 13:24:34 Cervical radiculopathy 64732881 M54.12 581683 [id number] Lencho Wells MD [facility] [address] [place] [address] 08/08/2024 08:54:34 08/23/2024 05:43:25 Cervical radiculopathy 35119614 M54.12 664709 Closed Col les' fracture 261356691 S52.532D 419996112 Spinal milan nosis in cervical region 40720534 M48.02 21579 Stiffness of joint of left hand 6915843370 62952 M25.642 [id number] Lencho Wells MD [facility] [address] [place] [address] 10/31/2024 09:06:32 11/15/2024 14:52:07 Cervical radiculopathy 44155889 M54.12 525861 Vitamin D deficiency 347 85441 E55.9 44973 Bilateral carpal tunnel syndrome 4065652307 3098952 G56.03 [id number] Angel Travis MD [facility] [address] [place] [address] 11/20/2024 08:57:10 12/02/2024 09:35:13 Carpal tunnel syndrome of left wrist 2636850137 83437 G56.02 4398261 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 Travis Upon welcoming the patient from the waiting room into the clinic, I am able to observe how the involved extremity is used functional ly. The patient demonstrat es light use of the surgical hand for such activities as gathering personal items, and adjusting the chair. The patient shared their personal experience over the last 2 weeks living with a postoperat donald hand and modifying activities around the house. Fluctuatio ns in pain levels and the use of medication is also reviewed. The surgical wound is inspected and found to be clean and dry. The edges of the incision are approximat ed with intact sutures. Patient has intact neurovascu lar structures with only slight tenderness at the incision. No surroundin g erythema, wound drainage, warmth or signs of infection. The patient states no pain when palpating around the surgical site and the surroundin g structures . The digits on the involved hand are able to demonstrat e a nearly full composite fist. Thumb is able to flex and oppose to the small finger. Digits are able to demonstrat e full extension/ hyperexten rosi to open and flatten the palm. The wrist has nearly full flexion /extension /circumduc tion range of motion. The patient is able to demonstrat e both tip, tripod, and lateral pinch. The thenar muscle shows atrophy at 25%. Strength of the first dorsal interossei /adductor is 4/5. The distal sensation for light touch is assessed. The patient is able to demonstrat e a positive response to light touch. The patient reports difficulti es with fine sensationa nd numbness as related to dexterity tasks with the thumb, index, middle fingers. Postoperative visit 3984 81306 Z48.89 [id number] Sutures are removed today without complicati on. Education regarding the involved anatomy and the surgical procedure was well received. Scar massage was demonstrat ed including a variety of movements to disperse the fibrotic tissue which, if untouched, would create a thickened area of scar. This is instructed with a handout given to the patient. Additional home exercises including tendon gliding and median nerve gliding were demonstrat ed in the office today with a handout also provided. A small amount of therapy putty was introduced and demonstrat ed with the correspond ing worksheet was provided as well. Further discussion about the MELT technique using a small ball for pillar pain with informblanca n was provided. Per the surgeon , since there are no wound care complicati ons or concerns, no follow up appointmen t needed. The patient has been educated with a significan t Home Exercise Program to be completed over the next 2 weeks. The patient was instructed to contact the office if there should arise any concerns with the surgical site or if there is not sufficient functional recovery. All questions, with regards to return to functional activities , are answered prior to leaving the office today. This office visit was complete at 15 minutes. Health Concerns Section Related Observation LastModified by Organization Detai ls LastModified Time None Recorded Concern Status LastModified by Organization Details LastModified Time None Recorded Advance Directives Directive None Recorded Payers Insurance Date Sequence Insurance Name Policy Number Policy Smith Covered Member ID Smith Member ID Guarantor Name 05/01/2024 1 [place] [facility] Ethan Rico [id number] Ethan Rico 01/26/2025 1 [facility]MEDICAID O) [id number] Miriambud Alaina Rico [id number] Ethan Rico Notes Date Note Type Note Provider Name and Address Organization Details Recorded Time 4 text/html I am seeing the patient today under the supervision of Dr. Metz who was available but who did not see the patient.HPI: Patient presents for follow up and MRI review regarding ongoing neck pain. Symptoms present since November this year. Has a history of issues with her neck in the past. She was told that she had an issue with her spinal cord. Patient reports radiating bilateral with the left being worse_ arm pain, paresthesias and upper extremity weakness. Patient reports symptoms present since a fall in which she broke her left arm. She complains of numbness in all digits but feels it primarily in the C6 C7 distribution. Admits to issues with balance or fine motor skill deterioration. No clear etiology. Worsening overtime. The patient also has ongoing radiating left leg pain and numbness. Mechanical in nature. Has been doing an exercise program at home for this.She was recently seen by a provider here for possible carpal tunnel in the left hand. EMG test was ordered but she has not heard anything from the testing facility. She is hoping to have this test done to figure out what is going on with her left hand. She has muscle cramping numbness and tingling along with weakness. On the right side she does have some intermittent tingling and pain but much less severe than the left side. She has been receiving homeopathic treatments for the neck. This seems to help.TREATMENTS: Bed rest, activity modification, heat/ice, home exercise cervical stabilization program over the past 3 months, no history of spine surgery. Bee pollen.Past family, medical, social history and review of systems has been reviewed, updated and signed by me and is located in the patient's chart.Examination: The patient is well appearing, alert and oriented x3 and in no acute distress. Gait is normal. Inspection of the neck reveals no step off, deformity or overlying skin changes. Range of motion is 60% of normal. Nontender over the midline.Tender over the paracervical musculature and scapulothoracic region. Shoulder exam benign. No focal deficits distally except for some intrinsic weakness more on the left side, and triceps weakness left side only 4/5. Does have diminished sensation in the C6-7 distribution left side only. No atrophy. Normal reflexes. Negative Shi.X-rays ordered, obtained and reviewed at [facility], 2 views of the cervical spine reveals some loss of normal cervical lordosis otherwise no fractures, instability or bony lesions. Degenerative disc disease noted C5-7.MRI of the cervical spine was reviewed independently by myself today reveals moderate disc degeneration at C5-6 with mild canal narrowing, severe right-sided foraminal narrowing. At C6-7 there is a disc bulge which is asymmetric to the right and does cause compression mostly right sided. Subtle deformity of the cord although no cord signal change. Mild right and no significant left-sided foraminal narrowing at this level.Impression/Plan: Neck pain/Cervical DDD/Cervical radiculitis/Primarily left sided upper extremity complaints which doesn't correlate with the patients finds on recent MRI. Discussed the nature of the problem with the patient. Recommend EMG of the upper extremities to further evaluate her sensory and motor deficit in the left arm. Does have a history of trauma to the left arm with a fall documented back in November. At this point in time regarding her neck, I will have her follow-up with Dr. Wells although I do not anticipate that she will want surgery. She is hoping to avoid surgery for now.[facility] speech recognition diving coach software was used to create portions of this document. An attempt at proofreading has been made to minimize errors. Please call for corrections. Nina Wetzel PA-C [address], [place], [address], [facility] - [facility] 05/11/2024 12:21:02 5 text/html Cervical Spine Evaluation with Left Hand Symptoms Subjective:59-year-old female presents for cervical spine evaluation following a hiking accident in November. Patient reports falling and breaking her wrist/arm while attempting to prevent her tailbone from hitting a rock. In the weeks following the injury, she developed pain in her back, neck, and hands. While initial symptoms were severe from November through June, she reports some improvement with conservative measures including yoga and deep fascia release therapy, which provides temporary relief lasting approximately 3 weeks.Patient describes significant hand symptoms, particularly on the left side. She reports difficulty with fine motor tasks such as picking up small objects (unable to corn picker a Q-tip from ground) and opening bottle caps. She notes hand clumsiness bilaterally, worse on the left. Patient runs a cleaning business and reports increased hand symptoms by end of workday.Patient is scheduled for EMG studies next week. She has been managing symptoms through self-directed exercises and reports using muscle scrapers for self-therapy. Patient expresses preference to avoid surgery and medications based on previous experiences. Objective: PHYSICAL EXAM:Respiration Rate 14-16Height and Weight per aboveNormal Development without evidence of gross deformitiesOriented to person/place/timeNormal mood and affectNo swelling in bilateral lower extremitiesHead and Neck: Neck was supple without evidence of defects. No atrophy of the neck was visualized. Spine:Examination of the spine demonstrated no crepitation with palpation of the spinous process.The patient was able to flex and extend. No instability of the spine was demonstrated on physical exam. The spine had good strength and tone.No scars noted. No skin or hair changes CERVICAL SPINE EXAMINATION:- Limited cervical flexion and extension with pain noted on right side NEUROLOGICAL EXAMINATION:- Decreased sensation in left median nerve distribution- Positive findings for left hand weakness with finger flexion and tricep extension- Limited finger flexion, particularly on left, unable to make complete composite fist Left wrist exam notes skin closed. No swelling. Minimal tenderness over the distal radius and scaphoid. Can fully extend the digits however cannot make a composite fist. Decreased subjective sensation to light touch in the median nerve distribution. Negative Salazar's test. IMAGING STUDIES:I independently reviewed 4 view radiographs of the cervical spine obtained today to include AP, lateral, flexion and extension and note: Cervical Spine X-ray (Today):- Loss of normal lordosis- Facet arthrosis- Disc degeneration- No abnormal listhesis I independently reviewed MRI Cervical Spine (March 2023):- Multiple levels of disc degeneration with bulging at C5-6 and C6-7- C5-6: Disc protrusion causing foraminal stenosis and nerve impingement on right- C6-7: Right-sided disc protrusion indenting spinal cord with nerve root foraminal stenosis- Mild central stenosis at C5-6 I independently reviewed Wrist X-rays (November-January 2024) Noting:- Healed distal radius fracture- Significant disuse osteopenia- Early radiographs noted widened scapholunate interval. Not visualized on any acute more recent. Assessment and Plan:ASSESSMENT:1. Cervical spondylosis with myeloradiculopathy- Multiple level disc disease with nerve root and cord compression- Mild central stenosis- Currently managing with conservative treatment 2. Left hand dysfunction, suspected carpal tunnel syndrome- Pending EMG studies- Significant functional impairment 3. Healed left distal radius fracture. PLAN:1. Continue current conservative management including yoga and manual therapy2. Referral to occupational therapy for hand rehabilitation, focusing on:- Range of motion exercises- Strength training- Desensitization 3. Follow-up after EMG studies to review results and adjust treatment plan4. Monitor for progression of neurological symptoms including:- Worsening numbness- Hand clumsiness- Gait/balance problems 5. Patient to continue self-directed exercise program Additional Notes:Patient demonstrates good compliance with self-directed therapy but requires formal hand therapy evaluation and treatment. Continue to monitor for progression of cervical myelopathy symptoms. Lencho Wells MD [address] [place] [address] [address], [place], [address], [facility] - [facility] 08/08/2024 11:14:19 5 text/html [age]-year-old female presents for follow-up of cervical spine condition. Last seen on 08/08/2024.Chief Complaints:- Neck pain: Currently 5/10, increasing to 8/10 at worst- Bilateral hand symptoms, worse on left- Right hand pain reaches 7-8/10 at night- Left hand pain constant at 6/10Associated Symptoms:- Difficulty with fine motor tasks- Hand clumsiness bilaterally- Nocturnal symptoms in right hand- Balance issues reportedCurrent Activities:- [employer]- Recently returned to weight trainingPrior Treatment:- Self-directed exercises- Yoga- Fascia release therapy with minimal reliefRecent Studies:- EMG/NCS (08/15/2024): Severe bilateral carpal tunnel syndrome Lencho Wells MD [address] [place], [address], [facility] - [facility] 10/31/2024 12:44:12 5 text/html ROS as noted in the HPI Diagnosis: Bilateral carpal tunnel syndromeEarly Dupuytren's disease left palm 59-year-old female who presents with numbness tingling and pain in her bilateral hands left worse than right. This develop without history of trauma. The discomfort does awaken her from sleep at night. Past family, medical, social history and review of systems has been reviewed, updated and is located in the patient s chart. Examination: Healthy appearing patient in no apparent distress. Alert and oriented. HEENT: Normocephalic and atraumatic. Heart: Regular rate and rhythm. Lungs: Clear to auscultation bilaterally. Abdomen: Soft and nontender. Neurovascular exam: Positive Tinel signs bilateral carpal tunnels, positive Phalen's maneuver bilaterally. Extremities: Forearm nodule left palm contiguous with palmar fascia. Provocative testing of wrist and digits reveal no instability. No atrophy in either upper extremity. Brisk capillary refill in all digits I reviewed an EMG/NCS of the patient's bilateral upper extremities. The findings were consistent with severe bilateral carpal tunnel Plan: The patient and I discussed the situation at length. The patient's history, physical findings and electrodiagnostic studies are consistent with bilateral carpal tunnel syndrome. I described the nature of carpal tunnel syndrome and treatment options. The patient would like to proceed with a left carpal tunnel release. We discussed the nature of the surgery and potential risks including infection, injury to blood vessels, tendons, nerves, incomplete relief of numbness and palmar tenderness. Given the severity of her carpal tunnel syndrome, she is at very high risk for incomplete relief of her numbness. All of the patient's questions were answered. We will perform the procedure at the patient's earliest possible convenience. We also discussed her Dupuytren's disease. I have encouraged her to contact me if she develops a contracture of her finger preventing her from laying her palm flat on the table. Angel Travis MD [address], [place], [address], [facility] 11/20/2024 12:37:47 5 text/html This is a 59-year-old woman who had the left carpal tunnel release procedure with Dr. Travis on 12/29/2024. Today we will assess the surgical site and remove the sutures and initiate a home exercise program for the left hand. Of note the patient did have a healed distal radius fracture and had been receiving hand therapy for this. She also has a history of some cervical nerve impingement which she is being treated for with Dr. Russell Owen, OTR/L,T [address], [place], [address], [facility] 01/10/2025 14:02:17 OBGyn Episode No OBEpisode recorded.
--- OUTSIDE RECORDS SUMMARY | 2025-07-06 10:15 | XMS_ITS | Clinical Summary ---
Author Organization [facility] Address [address] [place] [id number] Phone Care Team Providers Care Adolescent Specialist Name Role Phone Sandeep Vann NP Primary Care Provider [phone] Social History Tobacco Use Types Packs/Day Years Used Date Smoking Tobacco: Never Assessed Comments Unknown Sex and Gender Information Value Date Recorded Sex Assigned at Not on file Legal Sex Female 10:41 AM EST Gender Identity Not on file Sexual Orientation Not on file Plan of Treatment Not on file Medical Devices Not on file Insurance [facility] Care Teams Adolescent Specialist Relationship Specialty Start Date End Date Sandeep Vann NP [address] [place] [address] PCP - General Family Medicine 06/20/21 Additional Source Comments The information contained in this document represents components of the legal health record. It is not the complete legal health record.[facility]
== END 2025-07-06 09:31 | disposition home or self-care (01) ==
LOC: HO.US 09:30
PROVIDERS: Visit Provider Internal Medicine Gastroenterology
DX: R79.89 Other specified abnormal findings of blood chemistry (principal); R10.9 Unspecified abdominal pain
CPT/HCPCS: 76700

== ENCOUNTER → 2025-07-06 09:40 | Outpatient (BNV) | payer OTHER, SELFPAY | PROVIDERS: Visit Provider Radiology Diagnostic Radiology | DX: R10.9 Unspecified abdominal pain (principal); R94.5 Abnormal results of liver function studies | CPT/HCPCS: 76700 ==